=== PATIENT | male | born 1985 | race Two or more races ===

== ENCOUNTER 2020-01-14 08:05 | Emergency (ER) | payer MEDICAID, OTHER ==
[~2020-01-14] VITALS: Ht 165.1 cm; Wt 87.0 kg
--- NOTE | 2020-01-14 08:33 | NUR ---
ASSUMED CARE OF PT AT THIS TIME FROM [facility]. 34 Y/O M PRESENTS STATING "MELO FOR 4 DAYS, FEEL IT ON THE TOP OF MY HEAD AND IN THE MORNINGS AT MY TEMPLES, WHEN I BED OVER FOR PERIODS OF TIME I FEEL A LOT OF PRESSURE IN MY HEAD, ALSO FELT LIKE I WAS HAVING A FEVER LAST 2 DAYS, DIDN'T TAKE MY TEMPERATURE, NO THERMOMETER, AND MY BODY WAS ACHING." RATES MELO PAIN 4-5/10. DENIES N/V/D, PHOTOPHBIA, VISUAL CHANGES OR DIFFICULTY, CP, SOB, OR RECENT TRAVEL/EXPOSURE TO ANY COVID + PERSONS. NEURO AND CMS INTACT, ASSESSMENT COMPLETED. TEMPLES NON-TENDER TO PALPATION. PUPILS KIRSTIN. CONT PULSE OX, BP MONITORS APPLIED. VSS. CALL LIGHT IN REACH. FALL PRECUATIONS IN PLACE. A&OX4. KHADRA ROSENBAUM AT BEDSIDE FOR EVALUATION, AWAITING ORDERS. PT PLACED IN ISOLATION PER PROTOCOL.
[2020-01-14] MEDS ORDERED: METOCLOPRAMIDE 5 MG/ML, 2ML ONE (08:45)
[2020-01-14] MEDS ORDERED: DIPHENHYDRAMINE 50 MG/ML, 1ML ONE (08:45)
--- NOTE | 2020-01-14 08:55 | NUR ---
PT MEDICATED NOTED PER ORDER IN [facility] FOR 7/10 MELO PAIN. DENIES NAUSEA,PHOTOPHOBIA, VISUAL CHANGES. RESTING COMFORTABLY. VSS. FALL PRECAUTIONS IN PLACE. CALL LIGHT IN REACH.
[2020-01-14] MEDS ORDERED: SODIUM CHLORIDE FLUSH 10ML SYR IVF ONE (09:00)
[2020-01-14] MEDS ORDERED: METOCLOPRAMIDE 5 MG/ML, 2ML IVPush ONE (09:00)
[2020-01-14] MEDS ORDERED: DIPHENHYDRAMINE 50 MG/ML, 1ML IVPush ONE (09:00)
--- NOTE | 2020-01-14 09:06 | NUR ---
BEDSIDE REPORT AND TRANSFER OF CARE TO EVERARDO TELLO AT THIS TIME.
--- NOTE | 2020-01-14 09:07 | NUR ---
REPORT RECEIVED FROM RUDI TELLO. PT RESTING IN BED, NO DISTRESS, REMAINS ON MONITORS. WILL REASSESS IF PAIN MEDICATIONS EFFECTIVE. CONT TO MONITOR.
--- NOTE | 2020-01-14 09:33 | NUR ---
PT STATES PAIN DECREASED, MEDICATIONS EFFECTIVE. PT UP TO RR, STEADY GAIT. PT OK FOR D/C PER ERMD. PT GIVEN D/C INSTRUCTIONS, VERBALIZED UNDERSTANDING.
[2020-01-14 09:36] VITALS: BP 131/78
== END 2020-01-14 09:37 | disposition home or self-care (01) ==
LOC: ED 08:39
DX: R51 Headache (principal)
CPT/HCPCS: 96374; 96375; 99284; J1200; J2765